=== PATIENT | female | born 1950 | race Caucasian/White ===

== ENCOUNTER → 2016-08-04 | Day surgery (SDC) | payer BC ==
[~2016-08-04] MED LIST: ATENOLOL PO; ATENOLOL-CHLOR1 EACH PO; CELEBREX PO; CELEXA20 M1 PO; CELEXA20 MG PO; LISINOPRIL10 MG PO
--- NOTE | ~2016-08-04 | OR ---
Unit #: [id number] #: [id number] Patient: CHERI STEVENS [id number] [address] [address] [id number] MR#: [id number] NAME: CHERI STEVENS. ROOM: Date of Procedure: 08/04/2016 Admission Date: 08/04/2016 Surgeon: Terell Aguilar M.D. : 1950 Attending Physician: Terell Aguilar M.D. Referring Physician: Terell Aguilar M.D. Primary Care Physician: Tre Patel M.D. OPERATIVE REPORT PROCEDURE PERFORMED Colonoscopy with biopsies. INDICATIONS FOR PROCEDURE A 65-year-old female, history of large polyp in the past, undergoing colonoscopy for surveillance. MEDICATIONS Monitored anesthesia. POSTOPERATIVE FINDINGS 1. Four small polyps, 2 to 3 mm each in ascending colon, removed using biopsy forceps. 2. Rest of the colonic mucosa to cecum was normal. Prep was good. PLAN Follow up on pathology report. Repeat colonoscopy in 3 to 5 years. DESCRIPTION OF PROCEDURE The patient was explained of the procedure, risks, and benefits along with risks and benefits of anesthesia. She was brought to the endoscopy room. Propofol anesthesia was given. Rectal exam was done, which was normal. Colonoscope was lubricated, passed up the rectum, advanced under direct vision all the way to the cecum. Cecum was identified by ileocecal valve and appendiceal orifice. Several polyps seen in the ascending colon as described. Rest of the mucosa was normal and healthy. I retroflexed in the rectum, internal hemorrhoids were noted. Gently, the scope was pulled out. She tolerated it well. Dictated by... Filomena Smith/yadiel TD: 08/05/2016 00:44 JOB #: [id number] Unit #: [id number] #: [id number] Patient: CHERI STEVENS OPERATIVE REPORT X Terell Aguilar MD PROCEDURE OPERATIVE NOTE
== END | disposition home or self-care (01) ==
LOC: COPS 08:36
DX: Z12.11 Encounter for screening for malignant neoplasm of colon (principal); D12.2 Benign neoplasm of ascending colon; D12.4 Benign neoplasm of descending colon; K64.8 Other hemorrhoids; Z88.0 Allergy status to penicillin; Z98.890 Other specified postprocedural states
CPT/HCPCS: 88305; J2250